=== PATIENT | male | born 1970 | race Caucasian/White ===

== ENCOUNTER 2024-12-14 06:32 | Day surgery (SDC) | payer OTHER, SELFPAY ==
[2024-12-14] VITALS (9 sets, daily range): BP systolic 122–130; BP diastolic 64–80; BMI 25.5
[2024-12-14] MEDS: TYLENOL 1000 MG PO (08:18)
[2024-12-14] MEDS: NORMOSOL-R/PLASMALYTE-A 1000 IV (08:19)
== END 2024-12-14 12:46 | disposition home or self-care (01) ==
LOC: SDS 06:32
PROVIDERS: ATTENDING PHYSICIAN Surgery; FAMILY PHYSICIAN Family Medicine
DX: K40.90 Unilateral inguinal hernia, without obstruction or gangrene, not specified as recurrent (principal); Z85.47 Personal history of malignant neoplasm of testis
CPT/HCPCS: 49650; C1781